=== PATIENT | female | born 1985 ===

== ENCOUNTER 2025-02-24 14:54 | Outpatient (CLI) | payer OTHER ==
[~2025-02-24 14:54] MED LIST: NON
== END 2025-02-24 14:57 | disposition home or self-care (01) ==
LOC: SONOGRAMA 14:54
DX: M65.812 Other synovitis and tenosynovitis, left shoulder (principal)

== ENCOUNTER 2025-09-15 07:05 | Outpatient (CLI) | payer OTHER ==
[2025-09-15 07:56] LABS: URINE APPEARANCE Clear; URINE BILIRRUBIN Negative (NEGATIVE); URINE BLOOD Negative; URINE COLOR Yellow; URINE GLUCOSE Negative (NEGATIVE); URINE KETONE Negative (NEGATIVE); URINE LEUKOCYTE Trace; URINE NITRATE Negative; URINE PROTEIN Negative (NEGATIVE); URINE UROBILINOGEN 0.2 E.U./dl
[2025-09-15 07:59] LABS: URINE BACTERIA 213.6 uL (0.0-1933); URINE EPITHELIAL CELLS 34.6 uL (0.0-38.8); URINE WBC 35.2 uL (0.0-23.2)
[2025-09-15 08:03] LABS: BASO % 0.4 % (0.1-1.2); EOS # 0.22 (0.04-0.54); EOS % 3.0 % (0.7-7.0); LYMPH # 2.26 (1.18-3.74); LYMPH % 30.6 % (19.3-53.1); MEAN PLATELET VOLUME 10.10 fl (9.4-12.4); MONO # 0.49 (0.24-0.82); MONO % 6.6 % (4.7-12.5); NEUT # 4.37 (1.56-6.13); NEUT % 59.1 % (34.0-71.1); RED CELL DISTRIBUTION WIDTH 12.8 % (11.6-14.4)
[2025-09-15 08:08] LABS: URINE CAST 0.00 uL (0.0-1.40); URINE RBC 1.0 uL (0.0-20.8)
[2025-09-15 08:47] LABS: ALT/SGPT 20.0 U/L (12-78); AST/SGOT 9.0 U/L (15-37); BILIRUBIN TOTAL 0.27 mg/dL (0.3-1.2); BUN CREA RATIO 20.0 (7.0-25.0); CREATININE SERUM 0.64 mg/dL (0.55-1.02); GFR 102.26; GLOBULINA 3.5 G/DL (2.4-3.5); GLUCOSE FASTING 102.0 mg/dL (65-100); HDL 81.0 mg/dl (40-60); OSMOLALITY SERUM 278.0 MOSM/KG (275-295); T4 FREE 0.99 NG/ML (0.76-1.46); TSH 1.86 uIU/mL (0.358-3.74); VLDL 51.0 (0-39)
[2025-09-15 08:48] LABS: CHOL HDL RATIO 3.3 (0-5.0); LDL 134.0 mg/dl (0-130)
[2025-09-15 11:21] LABS: VITAMIN D3 25 HYDROXY 31.76 ng/ml (30-120)
== END 2025-09-15 07:07 | disposition home or self-care (01) ==
LOC: LAB 07:05
PROVIDERS: ATTEND Internal Medicine
DX: E55.9 Vitamin D deficiency, unspecified (principal); I10 Essential (primary) hypertension; Z00.01 Encounter for general adult medical examination with abnormal findings; E53.8 Deficiency of other specified B group vitamins; Z79.899 Other long term (current) drug therapy